=== PATIENT | male | born 1985 | race Caucasian/White ===

== ENCOUNTER 2020-12-06 18:57 | Inpatient (IN) | payer OTHER ==
[~2020-12-06] VITALS: Ht 165.1 cm; Wt 5.0 kg
[2020-12-06] MEDS ORDERED: PEPCID AC20 MG (19:00)
[2020-12-13] MEDS ORDERED: VITAMIN D3125 MC2 PO (20:17)
== END 2020-12-14 15:33 | disposition home or self-care (01) | DRG 866 ==
LOC: ER 18:57 → ICU 12-07 12:47 → MEDJ 12-11 13:25
PROVIDERS: ADMIT Internal Medicine; ATTEND Internal Medicine
PROC: 30233N1 Transfusion of Nonautologous Red Blood Cells into Peripheral Vein, Percutaneous Approach (ICD-10-PCS; 2020-12-06)
PROC: 8E0ZXY6 Isolation (ICD-10-PCS; 2020-12-07)
PROC: 02HV33Z Insertion of Infusion Device into Superior Vena Cava, Percutaneous Approach (ICD-10-PCS; principal; 2020-12-09)
DX: B34.9 Viral infection, unspecified (principal); Z20.822 Contact with and (suspected) exposure to COVID-19; E16.2 Hypoglycemia, unspecified; K76.0 Fatty (change of) liver, not elsewhere classified
CPT/HCPCS: 70545

== ENCOUNTER 2022-04-08 14:25 | Emergency (ER) | payer OTHER ==
[~2022-04-08] VITALS: Ht 165.1 cm; Wt 113.4 kg
[~2022-04-08 14:25] MED LIST: PEPCID AC20 MG; VITAMIN D3125 MC2 PO
[2022-04-08] MEDS ORDERED: GLUMETZA500 MG PO (14:36)
== END 2022-04-08 21:05 | disposition home or self-care (01) ==
LOC: ER 14:25
DX: R10.84 Generalized abdominal pain (principal); E11.9 Type 2 diabetes mellitus without complications; Z79.84 Long term (current) use of oral hypoglycemic drugs; Z20.822 Contact with and (suspected) exposure to COVID-19

== ENCOUNTER 2023-06-15 16:40 | Emergency (ER) | payer OTHER ==
[~2023-06-15] VITALS: Ht 165.1 cm; Wt 106.6 kg
[~2023-06-15 16:40] MED LIST changes: +GLUMETZA500 MG PO
[2023-06-15] MEDS ORDERED: ADIPEX-P37.5 M1 PO (16:48)
[2023-06-15] MEDS ORDERED: LIPITOR20 MG PO (16:48)
[2023-06-15] MEDS ORDERED: ORPHENADRINE CITRATE 30 MG/ML AMPUL IM STA (17:24)
[2023-06-15] MEDS ORDERED: KETOROLAC TROMETHAMINE 30 MG VIAL IM STA (17:24)
== END 2023-06-15 17:41 | disposition home or self-care (01) ==
LOC: ER 16:40
DX: M54.31 Sciatica, right side (principal)

== ENCOUNTER → 2025-02-22 | Emergency (ER) | payer OTHER ==
[~2025-02-22] VITALS: Ht 162.6 cm; Wt 109.8 kg
[~2025-02-22] MED LIST changes: +ADIPEX-P37.5 M1 PO; +EZALLOR SPRINKL10 MG PO; +KETO10TA2 PO; +KETOROLAC TROMETHAMINE 30 MG VIAL IM ONE; +KETOROLAC TROMETHAMINE 30 MG VIAL ONE; +LIPITOR20 MG PO; +NORFLEX100MG PO; +ORPHENADRINE CITRATE 30 MG/ML AMPUL IM ONE; +ORPHENADRINE CITRATE 30 MG/ML AMPUL ONE; +PEPCID AC20 MG PO
[2025-02-22 19:42] LABS: BASO % 0.3 % (0.1-1.2); EOS # 0.07 (0.04-0.54); EOS % 1.0 % (0.7-7.0); LYMPH # 1.32 (1.18-3.74); LYMPH % 18.0 % (19.3-53.1); MEAN PLATELET VOLUME 9.40 fl (9.4-12.4); MONO # 0.75 (0.24-0.82); MONO % 10.2 % (4.7-12.5); NEUT # 5.15 (1.56-6.13); NEUT % 70.2 % (34.0-71.1); RED CELL DISTRIBUTION WIDTH 13.5 % (11.6-14.4)
[2025-02-22 20:07] LABS: BUN CREA RATIO 11.0 (7.0-25.0); CREATININE SERUM 0.82 mg/dL (0.70-1.30); GFR 104.59; GLUCOSE FASTING 113.0 mg/dL (65-100); OSMOLALITY SERUM 281.0 MOSM/KG (275-295)
[2025-02-22 21:02] LABS: URINE APPEARANCE Clear; URINE BILIRRUBIN Negative (NEGATIVE); URINE BLOOD Negative; URINE COLOR Dark Yellow; URINE GLUCOSE Negative (NEGATIVE); URINE KETONE Trace (NEGATIVE); URINE LEUKOCYTE Small; URINE NITRATE Negative; URINE PROTEIN Negative (NEGATIVE); URINE UROBILINOGEN 0.2 E.U./dl
[2025-02-22 21:10] LABS: URINE BACTERIA 87.5 uL (0.0-1933); URINE EPITHELIAL CELLS 1.9 uL (0.0-38.8); URINE RBC 4.8 uL (0.0-20.8); URINE WBC 4.4 uL (0.0-23.2)
[2025-02-22 21:14] LABS: URINE CAST 0.43 uL (0.0-1.40)
[2025-02-22 23:50] VITALS: BP 130/80; O2SAT 99
== END | disposition home or self-care (01) ==
LOC: ER 16:36
PROVIDERS: General Practice
DX: M62.830 Muscle spasm of back (principal); M54.50 Low back pain, unspecified; E11.9 Type 2 diabetes mellitus without complications; Z79.84 Long term (current) use of oral hypoglycemic drugs